=== PATIENT | female | born 1955 | race Caucasian/White ===

== ENCOUNTER 2018-09-16 00:57 | Outpatient (CLI) | payer OTHER, SELFPAY ==
--- NOTE | 2018-09-16 11:30 | DI.MAMMO_ITS ---
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 The breast tissue is heterogeneously radiodense which lowers the sensitivity of the study. There are no suspicious calcifications. There has been no significant interval change when compared with previous images. SUMMARY: No evidence of malignancy, Category 1. Annual screening mammography recommended. Breast density category C. MQSA ASSESSMENT OF FINDINGS: Negative. Category 1. Patient will receive a letter notifying them of these results. Bi-RADS category C. The breasts are heterogeneously dense, which may obscure small masses.
== END 2018-09-16 01:17 ==
PROVIDERS: PCP General Practice; Visit Provider Obstetrics & Gynecology
DX: Z12.31 Encounter for screening mammogram for malignant neoplasm of breast (principal); Z01.419 Encounter for gynecological examination (general) (routine) without abnormal findings
CPT/HCPCS: 77063; 77067

== ENCOUNTER 2019-08-22 01:56 | Outpatient (CLI) | payer OTHER, SELFPAY ==
[2019-08-22 08:49] LABS: Calculated LDL 159 mg/dL (<100); Cholesterol 246 mg/dL (<200); HDL Cholesterol 73 mg/dL (40-60); Triglyceride 70 mg/dL (<150)
== END 2019-08-22 02:16 ==
PROVIDERS: PCP Nurse Practitioner; Visit Provider Nurse Practitioner
DX: Z13.6 Encounter for screening for cardiovascular disorders (principal)
CPT/HCPCS: 36415; 80061

== ENCOUNTER 2019-09-20 00:29 | Outpatient (CLI) | payer OTHER, SELFPAY ==
--- NOTE | 2019-09-20 12:35 | DI.MAMMO_ITS ---
EXAM: MAMMO SCREENING CLINICAL HISTORY: screening,z12.39 TECHNIQUE: Mammograms were interpreted according to the usual protocol including computer analysis w [employer] CAD system, tomosynthesis and C-view imaging. COMPARISON: 2010 through 2018 FINDINGS: The breasts are composed of heterogeneously dense fibroglandular densities, Breast Density category C . No suspicious masses or suspicious microcalcifications are seen. No skin thickening or abnormal axillary lymph nodes are seen. There has been no significant change from prior exams. IMPRESSION: BI-RADS Category 1: Negative mammogram. Yearly screening mammography is recommended. Breast density category C, heterogeneously dense tissue which decreases the sensitivity of the mammog giovanni. The mammogram demonstrates the patient's breast tissue is dense. Dense breast tissue is very common a nd is not abnormal but dense breast tissue can make it harder to find cancer on a mammogram. Also, de nse breast tissue may increase breast cancer risk. This information about the result of the mammogram report was provided to the patient to raise their awareness. Use this report when you speak with the patient about their risks for breast cancer, which includes their family history. At that time, you may recommend additional screening tests (Ultrasound or MRI) as they might be useful based on their r isk. A negative radiographic report should not delay biopsy if a dominant or clinically suspicious mass is present. Up to ten percent of cancers are not identified on mammography. A negative report may reinforce clinical impression. Adenosis and dense breasts may obscure an underlying neoplasm. False positive reports average 6 to 10%.
== END 2019-09-20 00:49 ==
PROVIDERS: PCP Nurse Practitioner; Visit Provider Nurse Practitioner
DX: Z12.31 Encounter for screening mammogram for malignant neoplasm of breast (principal)
CPT/HCPCS: 77063; 77067

== ENCOUNTER 2019-12-26 06:16 | Day surgery (SDC) | payer OTHER, MEDICARE, SELFPAY ==
[2019-12-26 06:29] VITALS: BP 129/85; PULSE 81; RESP 14; TEMP 35.9; O2SAT 98
--- NOTE | 2019-12-26 06:53 | W.COLOREPORT ---
Date of service: 12/26/19 Time of Service: 07: Colonoscopy Report Date of procedure: 12/26/19 Pre-op diagnosis general: Colon Cancer Screening Post-op diagnosis procedure note: same Procedure: Colonoscopy with polypectomy Surgeon: Carmen Callaway Anesthesia proc note operative: other (General/ASA 2/Franicsca Quiles CRNA) Estimated blood loss (mL): 3 Pathology: other (Ascending polyp and transverse polyp) Complications: None Disposition: same day Indications: The patient is here for Colonoscopy pre-op. Her last screening was in 2006 and was unremarkable. She has no family history of colon cancer. She has not had any bowel habit changes. -Discussed colonoscopy bowel prep as well as the procedure. Discussed possible complications of the procedure to include bleeding, pain, perforation, missed small lesion/polyp, sore throat, aspiration and adverse reaction to the medications. Questions were answered to patient?s satisfaction. No guarantees were implied or given. Prep: Miralax/Dulcolax Procedure Start Time: : Procedure End Time: 07:56 Retraction Time: 21 minutes Findings: 2 small polyps Procedure Description: After informed consent was obtained the patient was taken to the procedure room and placed in a left decubitous position. Monitors were applied and a time out was done. The patients name, date of , procedure, allergies to medications and metal in their body was reviewed. The patient was then sedated. Once sedated and comfortable a rectal exam was done. External exam was normal. Internal exam revealed a normal sphincter tone and no palpable masses. The scope was then introduced and retro-flexed. No internal hemorrhoids were identified. The scope was then advanced to the cecum without difficulty. The ileocecal valve and appendiceal orifice were identified. The prep was good. The scope was then slowly retracted over 21 minutes back into the rectum. Polyps were removed with cold forceps in the ascending colon and transverse colon. There were no diverticula. The scope was removed and the patient was woken up and taken back to Same day surgery in stable condition. The patient tolerated the procedure well and there were no immediate complications. Follow up: The patient should follow up in 3-5 years unless they develop changes in bowel habits or other new gastrointestinal complaints.
--- NOTE | 2019-12-26 06:54 | W.PM.DSUDISC ---
Discharge Plan Disposition Patient Disposition: HOME Condition: Good Discharge Details Reason For Visit: Colonoscopy Attending Provider: Carmen Callaway Primary Care Provider: Karina Moya Home Meds and New Rx's Prescriptions: Continued escitalopram oxalate [Lexapro] 20 mg tablet 20 mg PO DAILY Qty: 90 RF: 4 ibuprofen 800 MG tablet 800 mg PO TID RF: 0 acetaminophen [Mapap Extra Strength] 500 MG tablet 1,000 mg PO PRN PRNRF: 0 Discontinued polyethylene glycol 3350 17 gram/dose powder 238 g PO ONCE Qty: 238 RF: 0 bisacodyl [Dulcolax (bisacodyl)] 5 mg tablet,delayed release (DR/EC) 5 mg PO ONCE Qty: 4 RF: 0 Discharge Instructions Additional Instructions: Findings: 2 small polyps were removed Follow up: depends on final pathology. You will receive a letter in the mail with the results and recommendations Please call if you develop: fevers >101.5 Nausea or Vomiting Abdominal pain that is not transient DAY SURGERY UNIT POST ENDOSCOPY INSTRUCTIONS 1. Because there will be medication in your system for the next 24 hours, you may feel a little sleepy. Your coordination will be affected. Therefore: a. Do not drive or operate dangerous equipment for 24 hours. b. Do not drink alcohol beverages for 24 hours (not even beer). c. Plan to go home and rest for the day. 2. Generally there are no restrictions on your activity after a day or so has gone by, but you may feel a bit fatigued for a few days. 3 After you arrive home you may have a light meal and return to a normal diet as you can tolerate it without feeling sick to your stomach. 4. After surgery, you may feel pain or discomfort. This should be only transient, but if it persists please contact your doctor. 5. If there are any questions regarding the findings of your procedure, please feel free to contact your doctor. 6. If you are unable to contact your doctor with a problem, contact the hospital at [phone]. 7. Continue all your regular medications unless directed otherwise. I understand the above instructions and have no questions. Signature of Patient or Responsible Adult Escort Date/Time Name of Responsible Adult Escort Signature of Nurse Date/Time Activity:: Activity as Tolerated Diet:: As Tolerated Discharge Orders Discharge Orders: Discharge Order (Routine); Ordered 12/26/19 Ordered By: Carmen Callaway
[2019-12-26] MEDS: Lactated Ringers 1,000 ML 80 ML IV (07:00)
--- NOTE | 2019-12-26 07:40 | BOWEL_PTH ---
PATIENT: Chiara Hooper LOC: [facility] U#:[id number] AGE/SX: 64/F ROOM: RE12/26/[address]: Carmen Callaway MD : [id number] BED: DIS: 12/26/2019 SPEC #: [id number] RECD: 12/26/19 12:21 STATUS: FELIPE RE #: [id number] LINDA: 12/26/19 07:[address]: Carmen Callaway DEPT: Surgical Specimen RECD BY: Alvina Horton ENTERED: 12/26/19 12:23 SP TYPE: Bowel OTHR DR: Karina Moya, PhD FREEDOM OF INFORMATION OFFICER Tissues: 1 - BIOPSY BOWEL 2 - BIOPSY BOWEL Procedures: GROSS AND MICRO LEVEL 4 Comments: [id number]
[2019-12-26 08:29] VITALS: BP 125/71; PULSE 64; RESP 16; TEMP 36.1; O2SAT 99
== END 2019-12-26 09:10 | disposition home or self-care (01) ==
PROVIDERS: PCP Nurse Practitioner; Visit Provider Surgery
PROC: 0DJD8ZZ Inspection of Lower Intestinal Tract, Via Natural or Artificial Opening Endoscopic (ICD-10-PCS; CPT 45378; principal; 2019-12-26 07:30)
DX: Z12.11 Encounter for screening for malignant neoplasm of colon (principal); D12.2 Benign neoplasm of ascending colon
CPT/HCPCS: 45380; 88305

== ENCOUNTER 2020-02-27 04:31 | Outpatient (CLI) | payer OTHER, MEDICARE, SELFPAY ==
[2020-02-28 21:18] LABS: Patient Race White; SARS-CoV-2 RNA Undetected (Undetected); SARS-CoV-2 Specimen Source Nasal
== END 2020-02-27 04:51 ==
PROVIDERS: PCP Nurse Practitioner; Visit Provider Nurse Practitioner
DX: Z11.59 Encounter for screening for other viral diseases (principal)
CPT/HCPCS: U0003

== ENCOUNTER 2020-06-21 02:29 | Outpatient (CLI) | payer MEDICARE, SELFPAY ==
[2020-06-22 14:56] LABS: COVID-19 RT-PCR UVMMC Result Negative (Negative)
== END 2020-06-21 02:30 | disposition home or self-care (01) ==
LOC: LBO 02:29
PROVIDERS: PCP Nurse Practitioner; Visit Provider Nurse Practitioner
DX: Z20.822 Contact with and (suspected) exposure to COVID-19 (principal)
CPT/HCPCS: U0003; U0005

== ENCOUNTER 2020-07-11 03:30 | Outpatient (CLI) | payer MEDICARE, SELFPAY ==
--- NOTE | 2020-07-11 11:30 | DI.RAD_ITS ---
EXAM: XR ANKLE RT COMPLETE CLINICAL HISTORY: ankle injury, ankle pain, M25.579. TECHNIQUE: 2D digital imaging was performed. COMPARISON: No exams were available for comparison FINDINGS: BONES: No acute fracture is present. No bony destructive lesion is seen. JOINTS: The ankle mortise is normally aligned. No significant degenerative changes. SOFT TISSUE: Normal. IMPRESSION: Unremarkable radiographs of the right ankle. DATA REPOSITORY: RADIATION DOSE DELIVERED:
[2020-07-11 12:56] LABS: Calculated LDL 141 mg/dL (<100); Cholesterol 231 mg/dL (<200); HDL Cholesterol 72 mg/dL (40-60); Triglyceride 92 mg/dL (<150)
== END 2020-07-11 03:31 | disposition home or self-care (01) ==
PROVIDERS: PCP Nurse Practitioner; Visit Provider Nurse Practitioner
DX: M25.571 Pain in right ankle and joints of right foot (principal); E78.89 Other lipoprotein metabolism disorders; Z13.6 Encounter for screening for cardiovascular disorders
CPT/HCPCS: 36415; 80061; 73610

== ENCOUNTER 2021-05-28 01:32 | Outpatient (CLI) | payer MEDICARE, SELFPAY ==
--- NOTE | 2021-05-28 15:00 | DI.MAMMO_ITS ---
Exam(s) MAMMO SCREENING EXAM: MAMMO SCREENING CLINICAL HISTORY: SCREENING, Z12.31 TECHNIQUE: Mammograms were interpreted according to the usual protocol including computer analysis w [employer] CAD system, tomosynthesis and C-view imaging. COMPARISON: FINDINGS: The breasts are heterogeneously dense with fairly symmetrical distribution of fibroglandular tissue. No dominant mass or clumped microcalcification is identified in either breast. The current examinat ion is compared with previous examinations including September 2019 and there has been no gross interval c hange in appearance in comparison with the prior studies. IMPRESSION: No specific evidence of malignancy at this time. Routine screening examinations are suggested at yea rly intervals in this age group according to the ACS ACR guidelines. BI-RADS Category 1 - Negative Breast Density - Category C - Heterogeneously dense
== END 2021-05-28 01:52 ==
PROVIDERS: PCP Nurse Practitioner; Visit Provider Internal Medicine Rheumatology
DX: Z12.31 Encounter for screening mammogram for malignant neoplasm of breast (principal)
CPT/HCPCS: 77063; 77067

== ENCOUNTER 2022-05-26 01:03 | Outpatient (CLI) | payer MEDICARE, SELFPAY ==
--- NOTE | 2022-05-26 17:50 | DI.DEXA_ITS ---
Exam(s) XR DEXA BONE DENSITY W/WO SHYANNE EXAM: XR DEXA BONE DENSITY W/WO SHYANNE CLINICAL HISTORY: screening for osteoporosis,z78.0 TECHNIQUE: COMPARISON: Comparison examination is 01/02/2015. FINDINGS: Lateral Spine Image: Unremarkable. No compression deformities identified. Left hip: Total T-Score: -2.1. This compares to -1.4 on the prior examination. Total Z-Score: -0.7 T- and Z-scores: The total T-score is consistent with osteopenia. Lumbar Spine: Total T-Score: -2.5. This compares to -2.2 on the prior examination. Total Z-Score: -0.5 T- and Z-scores: Findings are consistent with osteoporosis. IMPRESSION: Osteoporosis in the lumbar spine.
== END 2022-05-26 01:23 ==
PROVIDERS: PCP Nurse Practitioner Family; Visit Provider Nurse Practitioner
DX: Z13.820 Encounter for screening for osteoporosis (principal); M81.0 Age-related osteoporosis without current pathological fracture
CPT/HCPCS: 77080

== ENCOUNTER → 2022-10-02 11:10 | Outpatient (BNVA) | payer MEDICARE, SELFPAY | PROVIDERS: PCP Nurse Practitioner Family; Referring Provider Nurse Practitioner Family; Visit Provider Surgery | DX: R19.7 Diarrhea, unspecified (principal); K63.5 Polyp of colon; R10.9 Unspecified abdominal pain | CPT/HCPCS: 36415; 99214; 99242 ==

== ENCOUNTER 2022-10-02 12:11 | Outpatient (REF) | payer MEDICARE, SELFPAY ==
[2022-10-02 12:29] LABS: Abs Immature Grans 0.01 10^3/uL (0.0-0.06); Absolute Basophil Count 0.03 10^3/uL (0.0-0.2); Absolute Eosinophil Count 0.06 10^3/uL (0.0-0.7); Absolute Monocyte Count 0.31 10^3/uL (0.1-0.8); Absolute Neutrophil Count 1.89 10^3/uL (1.2-6.7); Basophils % 0.9; Eosinophils % 1.8; HCT 36.6 % (36.0-46.0); HGB 12.4 g/dL (11.2-15.7); Immature Grans % 0.3; Lymphocytes % 32.4; MCH 30.6 pg (27.0-33.0); MCHC 33.9 % (32.0-36.0); MCV 90 fL (80-95); MPV 9.5 fL (8.0-11.0); Monocytes % 9.1; Neutrophils % 55.5; Platelet Count 154 10^3/uL (130-400); RBC 4.05 10^6/uL (3.93-5.22); RDW 12.7 % (11.7-14.6); RDW-SD 42.2 fL
[2022-10-02 12:53] LABS: ALT 19 U/L (14-59); AST 23 U/L (15-37); Alkaline Phosphatase 57 U/L (46-116); Anion Gap 7.9 mmol/L (3-11); BUN 11 mg/dL (7-18); Bilirubin, Total 0.7 mg/dL (0.2-1.0); CO2 30.1 mmol/L (21.0-32.0); Calcium 9.6 mg/dL (8.5-10.1); Chloride 102 mmol/L (98-107); Estimated GFR 61.36 (mL/min/1.73m2); Glucose 91 mg/dL (74-106); Sodium 140 mmol/L (136-145)
== END 2022-10-02 12:12 | disposition home or self-care (01) ==
LOC: LBN 12:11
PROVIDERS: PCP Nurse Practitioner Family; Visit Provider Surgery
DX: F10.11 Alcohol abuse, in remission (principal); I63.9 Cerebral infarction, unspecified; I77.71 Dissection of carotid artery; J32.9 Chronic sinusitis, unspecified; K63.5 Polyp of colon; R10.9 Unspecified abdominal pain; R11.0 Nausea; R19.7 Diarrhea, unspecified
CPT/HCPCS: 80053; 85025

== ENCOUNTER 2022-10-03 11:57 | Day surgery (SDC) | payer MEDICARE, SELFPAY ==
--- NOTE | 2022-10-02 20:32 | W.COLOREPORT ---
Date of service: 10/03/22 Time of Service: 13:41 Colonoscopy Report Date of procedure: 10/03/22 Pre-op diagnosis general: serrated adenoma Post-op diagnosis procedure note: other (normal) Surgeon: Tamanna Wagner Anesthesia Type: General:No Airway Estimated blood loss (mL): 1 Pathology: other Complications: None Disposition: same day Prep: Miralax/Dulcolax Retraction Time: 11 Procedure Description: After informed consent was obtained the patient was taken to the procedure room and placed in a left decubitous position. Monitors were applied and a time out was done. The patients name, date of , procedure, allergies to medications and metal in their body was reviewed. The patient was then sedated. Once sedated and comfortable a rectal exam was done. External exam was normal. Internal exam revealed a normal sphincter tone and no palpable masses. The scope was then introduced and retrofelexed. No internal hemorrhoids were identified. The scope was then advanced to the cecum w/out difficulty. The TI and appendiceal orifice were identified. The prep was BBPS 3 in all segments for a total of 9. The scope was then slowly retracted over 11 minutes back into the rectum. Biopsies were taken in the cecum, 70 cm, 30 cm and in the rectum. There are no polyps, AVMs, or diet diverticula visualized. The mucosa is pink and healthy with a normal vascular pattern. The scope was removed and the patient was woken up and taken back to Same day surgery in stable condition. The patient tolerated the procedure well and there were no immediate complications. Follow up: The patient should he not require any further colonoscopies, unless they develop changes in bowel habits or other new gastrointestinal complaints.
--- NOTE | 2022-10-02 20:33 | PDOC.DSDIS_ITS ---
Date of service: 10/03/22 Time of Service: 13:34 Discharge Plan Disposition Patient Disposition: Home Condition: Good Discharge Details Reason For Visit: colon scope Attending Provider: Tamanna Wagner Primary Care Provider: Sharonda Vila Home Meds and New Rx's Prescriptions: Continued braulio goat weed capsule 1 cap PO DAILY Discontinued polyethylene glycol 3350 17 gram/dose powder 238 g PO ONCE Qty: 238 0RF Rx Instructions: take per colonoscopy instructions bisacodyl [Dulcolax (bisacodyl)] 5 mg tablet,delayed release (DR/EC) 5 mg PO ONCE Qty: 4 0RF Rx Instructions: take per colonoscopy instructions Discharge Instructions Additional Instructions: DSU Colonoscopy Post- Op Instructions Instructions for Everyone who is given Anesthesia: For your safety, please do the following for the next twenty-four (24) hours: *Do Not operate a motor vehicle (car, truck, motorcycle, etc.) *Do Not drink alcoholic beverages or use any recreational drugs for the first 24 hours or while taking pain medications. The medications in your body may have a reaction that can be dangerous. *Do Not make any important decisions or sign any important papers. Findings: normal Follow up: -We did do biopsies. I will send a letter in 2 to 3 weeks time with the resu lts. -Try Metamucil daily for diarrhea. Can also you immodium for rescue. 1. No lifting over 20 pounds or strenuous activity for the first 24 hours after your procedure. After 24 hours there are no restrictions on your activity but you may feel fatigued for a few days. 2. After you arrive home you may have a light meal and return to your normal diet as you can tolerate it without feeling sick to your stomach. 3. You may have a bloated, gaseous feeling in your belly (abdomen) after a colonoscopy. Passing gas and belching will help. Walking or lying down on your left side with your knees flexed may relieve the discomfort. Call the office at [phone] (Office) or [phone] (Hospital) right away if you notice any of the following: a.Vomiting of blood or ?coffee ground stools?. b.Rectal bleeding 1Tbsp, blood clots or continuous bleeding. c.Severe belly (abdominal) pain. d.A hard distended belly (abdomen) and an inability to pass gas. 4. Please don?t expect to have a normal BM (bowel movement) for 2-3 days after your procedure. 5. If there are questions regarding the findings of your procedure, please contact your doctor 6. If you are unable to contact your doctor with a problem, contact the hospital at [phone]. 7. Continue all your regular medications unless directed otherwise. I understand the above instructions and have no questions. Signature of Patient or Adult Escort Name of Responsible Adult Escort Signature of Nurse Date/Time Activity:: see above Diet:: see above Discharge Orders Discharge Orders: Discharge Order (Routine); Ordered 10/03/22 Ordered By: Tamanna Wagner DS: Diagnosis Discharge Diagnosis (1) Sessile colonic polyp: Asessment and Plan: The patient is seen and examined after their colonoscopy.? The patient has been able to pass gas.? They are not having abdominal pain.? They have been able to tolerate liquids and a snack.? They do not have any nausea or vomiting.? They are not having any chest pain or shortness of breath.??? They are not having any rectal bleeding. Their vital signs have been stable-see nursing notes. We discussed findings during their colonoscopy, and any biopsies that were done/polyps that were removed. The patient will be sent a letter with any biopsy results, and when to repeat the colonoscopy.-see discharge instructions. Patient was given explicit instructions to follow-up regarding colonoscopy-refer to discharge instructions.? We reviewed resumption of medications.Patient verbalized understanding and discharged in stable and satisfactory condition- See nursing notes (2) Abdominal discomfort: Status: Acute (3) Nausea: Status: Acute (4) Diarrhea: Status: Acute (5) Carotid artery dissection: (6) Chronic sinusitis: (7) CVA (cerebral vascular accident): (8) Osteopenia: (9) History of alcohol abuse:
[2022-10-03 12:14] VITALS: BP 108/80; PULSE 90; RESP 16; TEMP 36.1; O2SAT 98
[2022-10-03] MEDS: Lactated Ringers 1,000 ML 80 ML IV (12:31)
--- NOTE | 2022-10-03 12:39 | ANES.PREOP_ITS ---
General Info Height: 5 ft 7 in Weight: 56.8 kg Body Mass Index (BMI): 19.5 Surgical Procedure: Operation Date: 10/03/22 12:20 Proposed Procedure Side Surgeon p Colonoscopy w/Biopsy and Possible Polypectomy Tamanna Wagner DO Meds Allergies and Home Medications Allergies Allergy/AdvReac Type Severity Reaction Status Date / Time No Known Allergies Allergy Verified 10/03/22 12:13 Home Medication Medication Instructions Recorded agy goat weed 1 cap PO DAILY 10/02/22 Current Visit Medications: Current Medications Generic Name Dose Route Start Last Admin Trade Name Freq PRN Reason Stop Dose Admin Hyoscyamine Sulfate 0.125 mg 10/03/22 08:31 Hyoscyamine 0.125 Mg Sl/Oral/Chew SL 11/02/22 08:30 DIRECTED PRN Ringer's Solution 1,000 mls @ 80 mls/hr 10/03/22 06:00 10/03/22 12:31 IV 11/01/22 23:59 80 mls/hr INFUSION KATHERYN Administration IV Miscellaneous Supplies 1 each 10/03/22 06:00 Iv Access IV 11/01/22 23:59 DIRECTED KATHERYN Ondansetron HCl 4 mg 10/03/22 08:31 Ondansetron 4 Mg/2 Ml Vial IVP 11/02/22 08:30 Q4H PRN PRN Nausea / Vomiting Sodium Chloride 0 ml 10/03/22 06:00 Normal Saline Flush 10 Ml Syr IV 11/01/22 23:59 PRN PRN Sodium Chloride 0 ml 10/03/22 06:00 Normal Saline 10 Ml Vial IJ 11/01/22 23:59 DIRECTED PRN Sterile Water 0 ml 10/03/22 06:00 Water,Injection,Sterile 10 Ml Vial IJ 11/01/22 23:59 DIRECTED PRN PFSH Active Problems Active Problems: Problem Status Onset Code Depression F32.9 Hearing loss H91.90 Osteoporosis M81.0 Abdominal discomfort R10.9 Nausea R11.0 Diarrhea R19.7 Medical History Medical History Abnormal Pap smear of vagina Carotid artery dissection (01/12/14) 01/13 Chronic sinusitis CVA (cerebral vascular accident) s/t left carotid dissection 01/2010 History of alcohol abuse Sober since 2017 Leukopenia Numbness right hand & foot s/p CVA Osteopenia T-Score -2.2 in 2015 Sessile colonic polyp Surgical History Surgical History (Updated 10/03/22 @ 13:32 by Vy Dillon) History of open reduction and internal fixation (ORIF) procedure R wrist Hx of colonoscopy (~09/2022) 12/2019 S/P LEEP S/P ORIF (open reduction internal fixation) fracture Right Wrist 2017 Tobacco Smoking/Tobacco Use Status: Never Passive smoking exposure: Yes Second hand exposure: Yes Alcohol Alcohol Intake: former Substance Use Substance use: Occasionally Substance use type: marijuana Details: Smokes marijuana occasionally, current sobriety from alcohol since 2017. Vital Signs and Lab Results Vital Signs Most Recent Vital Signs in EMR: Most Recent Vital Signs Temp Pulse Resp BP Pulse Ox 36.1 C L 90 16 108/80 98 10/03/22 12:14 10/03/22 12:14 10/03/22 12:14 10/03/22 12:14 10/03/22 12:14 Lab Results Blood Type / Crossmatch: No Data to Display Complete Blood Count: White Blood Count 3.40 10^3/uL (4.4-10.8) L 10/02/22 12:10 Red Blood Count 4.05 10^6/uL (3.93-5.22) 10/02/22 12:10 Hemoglobin 12.4 g/dL (11.2-15.7) 10/02/22 12:10 Hematocrit 36.6 % (36.0-46.0) 10/02/22 12:10 Platelet Count 154 10^3/uL (130-400) 10/02/22 12:10 Complete Metabolic Panel: Sodium 140 mmol/L (136-145) 10/02/22 12:10 Potassium 4.0 mmol/L (3.5-5.1) 10/02/22 12:10 Chloride 102 mmol/L (98-107) 10/02/22 12:10 Carbon Dioxide 30.1 mmol/L (21.0-32.0) 10/02/22 12:10 BUN 11 mg/dL (7-18) 10/02/22 12:10 Creatinine 1.0 mg/dL (0.55-1.02) 10/02/22 12:10 Est GFR (CKD-EPI 2020) 61.36 (mL/min/1.73m2) 10/02/22 12:10 Calcium 9.6 mg/dL (8.5-10.1) 10/02/22 12:10 Albumin 4.0 g/dL (3.4-5.0) 10/02/22 12:10 Glucose 91 mg/dL (74-106) 10/02/22 12:10 Liver Function Panel: Alanine Aminotransferase (ALT/SGPT) 19 U/L (14-59) 10/02/22 12: 10 Aspartate Amino Transf (AST/SGOT) 23 U/L (15-37) 10/02/22 12:10 Coagulation Panel: No Data to Display Cardiac Panel: No Data to Display Arterial Blood Gas: No Data to Display Venous Blood Gas: No Data to Display Pancreas Panel: No Data to Display Thyroid Panel: No Data to Display Infectious Disease: No Data to Display Blood Cultures: No Data to Display Toxicology Panel: No Data to Display Anesthesia Assessment and Plan Anesthesia History Personal History: No History of Anesthesia Complications Family History: No Family History of Anesthesia Complications Implantable Cardiac Device Does patient have a Pacemaker or an ICD?: No ASA Classification ASA Score: ASA 2 Emergency Case?: No NPO Status NPO Status: NPO Clears >2 hours, Solids >8 hours Anesthesia Plan Resuscitation Status: Full Code Anesthesia Technique: General Anesthesia Airway Planned: Natural Airway Monitors Used: Standard Monitors Preoperative Comments:: 67 yo female for colo. Sig PMHx: CVA (carotid dissection 2009), depression, former EtOH, occ cannabis.
--- NOTE | 2022-10-03 12:43 | ANES.PREOP_ITS ---
General Info Date of Service Date Performed: 10/03/22 Height: 5 ft 7 in Weight: 56.8 kg Body Mass Index (BMI): 19.5 Surgical Procedure: Operation Date: 10/03/22 12:20 Proposed Procedure Side Surgeon p Colonoscopy w/Biopsy and Possible Polypectomy Tamanna Wagner, Meds Allergies and Home Medications Allergies Allergy/AdvReac Type Severity Reaction Status Date / Time No Known Allergies Allergy Verified 10/03/22 12:13 Home Medication Medication Instructions Recorded agy goat weed 1 cap PO DAILY 10/02/22 Current Visit Medications: Current Medications Generic Name Dose Route Start Last Admin Trade Name Freq PRN Reason Stop Dose Admin Hyoscyamine Sulfate 0.125 mg 10/03/22 08:31 Hyoscyamine 0.125 Mg Sl/Oral/Chew SL 11/02/22 08:30 DIRECTED PRN Ringer's Solution 1,000 mls @ 80 mls/hr 10/03/22 06:00 10/03/22 12:31 IV 11/01/22 23:59 80 mls/hr INFUSION KATHERYN Administration IV Miscellaneous Supplies 1 each 10/03/22 06:00 Iv Access IV 11/01/22 23:59 DIRECTED KATHERYN Ondansetron HCl 4 mg 10/03/22 08:31 Ondansetron 4 Mg/2 Ml Vial IVP 11/02/22 08:30 Q4H PRN PRN Nausea / Vomiting Sodium Chloride 0 ml 10/03/22 06:00 Normal Saline Flush 10 Ml Syr IV 11/01/22 23:59 PRN PRN Sodium Chloride 0 ml 10/03/22 06:00 Normal Saline 10 Ml Vial IJ 11/01/22 23:59 DIRECTED PRN Sterile Water 0 ml 10/03/22 06:00 Water,Injection,Sterile 10 Ml Vial IJ 11/01/22 23:59 DIRECTED PRN PFSH Active Problems Active Problems: Problem Status Onset Code Depression F32.9 Hearing loss H91.90 Osteoporosis M81.0 Abdominal discomfort R10.9 Nausea R11.0 Diarrhea R19.7 Medical History Medical History Abnormal Pap smear of vagina Carotid artery dissection (01/12/14) 01/13 Chronic sinusitis CVA (cerebral vascular accident) s/t left carotid dissection 01/2010 History of alcohol abuse Sober since 2017 Leukopenia Numbness right hand & foot s/p CVA Osteopenia T-Score -2.2 in 2015 Sessile colonic polyp Surgical History Surgical History History of open reduction and internal fixation (ORIF) procedure R wrist Hx of colonoscopy S/P LEEP S/P ORIF (open reduction internal fixation) fracture Right Wrist 2017 Tobacco Smoking/Tobacco Use Status: Never Passive smoking exposure: Yes Second hand exposure: Yes Alcohol Alcohol Intake: former Substance Use Substance use: Occasionally Substance use type: marijuana Details: Smokes marijuana occasionally, current sobriety from alcohol since 2017. Vital Signs and Lab Results Vital Signs Most Recent Vital Signs in EMR: Most Recent Vital Signs Temp Pulse Resp BP Pulse Ox 36.1 C L 90 16 108/80 98 10/03/22 12:14 10/03/22 12:14 10/03/22 12:14 10/03/22 12:14 10/03/22 12:14 Lab Results Blood Type / Crossmatch: No Data to Display Complete Blood Count: White Blood Count 3.40 10^3/uL (4.4-10.8) L 10/02/22 12:10 Red Blood Count 4.05 10^6/uL (3.93-5.22) 10/02/22 12:10 Hemoglobin 12.4 g/dL (11.2-15.7) 10/02/22 12:10 Hematocrit 36.6 % (36.0-46.0) 10/02/22 12:10 Platelet Count 154 10^3/uL (130-400) 10/02/22 12:10 Complete Metabolic Panel: Sodium 140 mmol/L (136-145) 10/02/22 12:10 Potassium 4.0 mmol/L (3.5-5.1) 10/02/22 12:10 Chloride 102 mmol/L (98-107) 10/02/22 12:10 Carbon Dioxide 30.1 mmol/L (21.0-32.0) 10/02/22 12:10 BUN 11 mg/dL (7-18) 10/02/22 12:10 Creatinine 1.0 mg/dL (0.55-1.02) 10/02/22 12:10 Est GFR (CKD-EPI 2020) 61.36 (mL/min/1.73m2) 10/02/22 12:10 Calcium 9.6 mg/dL (8.5-10.1) 10/02/22 12:10 Albumin 4.0 g/dL (3.4-5.0) 10/02/22 12:10 Glucose 91 mg/dL (74-106) 10/02/22 12:10 Liver Function Panel: Alanine Aminotransferase (ALT/SGPT) 19 U/L (14-59) 10/02/22 12: 10 Aspartate Amino Transf (AST/SGOT) 23 U/L (15-37) 10/02/22 12:10 Coagulation Panel: No Data to Display Cardiac Panel: No Data to Display Arterial Blood Gas: No Data to Display Venous Blood Gas: No Data to Display Pancreas Panel: No Data to Display Thyroid Panel: No Data to Display Infectious Disease: No Data to Display Blood Cultures: No Data to Display Toxicology Panel: No Data to Display Anesthesia Assessment and Plan Anesthesia History Personal History: No History of Anesthesia Complications Family History: No Family History of Anesthesia Complications Exercise Tolerance Exercise Tolerance: Metabolic Equivalents>4 Pertinent Negatives Pertinent Negatives: No Symptoms of GERD Cardiac & Pulmonary Exam Cardiac Exam: Normal S1/S2 Heart Sounds Pulmonary Exam: Clear Bilateral Breath Sounds Implantable Cardiac Device Does patient have a Pacemaker or an ICD?: No Airway Exam Known Difficult Airway: No Mallampati Class: 2 Mouth Opening: Normal (> 3cm) Thyromental Distance: Greater than 3 cm Neck Range of Motion: Full ROM Neck Circumference: Normal Teeth Condition: Normal Dentition ASA Classification ASA Score: ASA 2 Emergency Case?: No NPO Status NPO Status: NPO Clears >2 hours, Solids >8 hours Anesthesia Plan Resuscitation Status: Full Code Anesthesia Technique: General Anesthesia Airway Planned: Natural Airway Monitors Used: Standard Monitors
[2022-10-03 12:47] VITALS: BMI 19.5
--- NOTE | 2022-10-03 13:14 | BOWEL_PTH ---
PATIENT: Chiara Hooper LOC: [facility] U#:[id number] AGE/SX: 67/F ROOM: RE10/03/[address]: Tamanna Wagner : 1955 BED: DIS: 10/03/2022 SPEC #: [id number] RECD: 10/03/22 14:04 STATUS: FELIPE REIrving #: [id number] LINDA: 10/03/22 13:[address]: Tamanna Wagner DEPT: Surgical Specimen RECD BY: Alvina Horton ENTERED: 10/03/22 14:04 SP TYPE: Bowel OTHR DR: Sharonda Vila, SEPTIC CLEANER Tissues: 1 - BIOPSY BOWEL 2 - BIOPSY BOWEL 3 - BIOPSY BOWEL 4 - BIOPSY BOWEL Procedures: GROSS AND MICRO LEVEL 4 Comments: [id number]
[2022-10-03 13:30] VITALS: BP 100/78; PULSE 73; RESP 17; TEMP 36.2; O2SAT 98
--- NOTE | 2022-10-03 13:36 | W.ANESPOSTOP ---
Postoperative Evaluation Date, Time and Location Date Performed: 10/03/22 Time Performed: 13:36 Patient Location: Day Surgery Unit Vital Signs Most Recent Imported Vital Signs: Most Recent Vital Signs Temp Pulse Resp BP Pulse Ox 36.1 C L 90 16 108/80 98 10/03/22 12:14 10/03/22 12:14 10/03/22 12:14 10/03/22 12:14 10/03/22 12:14 Pain Score Most Recent Pain Score: Most Recent Pain Score Pain Level 0 10/03/22 12:14 Assessment Mental Status: Awake (Alert & Oriented to Patient Baseline) Airway and Respiratory Function: Patent airway with normal (patient baseline) respiratory exam Cardiovascular Function: Hemodynamically Stable Hydration Status: Adequately Hydrated Nausea & Vomiting: No Nausea or Vomiting Pain: Pt. Denies Any Pain Peripheral Nerve Block: Patient did not receive a nerve block
[2022-10-03 14:12] VITALS: BP 119/64; PULSE 72; RESP 16; TEMP 36.3; O2SAT 99
== END 2022-10-03 14:25 | disposition home or self-care (01) ==
PROVIDERS: PCP Nurse Practitioner Family; Visit Provider Surgery
PROC: 0DJD8ZZ Inspection of Lower Intestinal Tract, Via Natural or Artificial Opening Endoscopic (ICD-10-PCS; CPT 45378; principal; 2022-10-03 12:15)
DX: R11.0 Nausea (principal); K63.5 Polyp of colon; R63.4 Abnormal weight loss; R19.7 Diarrhea, unspecified; Z86.010 Personal history of colon polyps
CPT/HCPCS: 45380; 88305

== ENCOUNTER 2022-10-20 02:37 | Outpatient (CLI) | payer MEDICARE, SELFPAY ==
--- NOTE | 2022-10-20 07:14 | DI.US_ITS ---
Exam(s) US ABDOMEN EXAM: US ABDOMEN CLINICAL HISTORY: nausea/diarrhEa/bloating,R10.9,R11.0,R19.7 TECHNIQUE: Ultrasound abdomen performed using standard protocol. COMPARISON: No exams were available for comparison FINDINGS: LIVER: Normal size and echogenicity. No focal liver lesions are seen.. GALLBLADDER: No evidence of cholelithiasis. No evidence of wall thickening. No pericholecystic fluid identified. WESTBROOK'S SIGN: Negative. BILIARY SYSTEM: No intrahepatic or extrahepatic biliary ductal dilation. KIDNEYS: Kidneys are symmetric in size. No evidence of renal calculi. No evidence of hydronephrosis. No renal mass or cyst identified. PANCREAS: Normal where visualized. SPLEEN: Not enlarged. ABDOMINAL AORTA AND IVC: Visualized portions normal caliber. ASCITES: None seen. IMPRESSION: Normal sonographic appearance of the upper abdomen. DATA REPOSITORY:
== END 2022-10-20 02:57 ==
LOC: DI 02:37
PROVIDERS: PCP Nurse Practitioner Family; Visit Provider Surgery
DX: R10.9 Unspecified abdominal pain (principal); R11.0 Nausea; R19.7 Diarrhea, unspecified
CPT/HCPCS: 76700

== ENCOUNTER → 2023-06-01 02:12 | Outpatient (CLI) | payer MEDICARE, SELFPAY ==
--- NOTE | 2023-06-01 | DI.MAMMO_ITS ---
Exam(s) MAMMO SCREENING EXAM: MAMMO SCREENING CLINICAL HISTORY: SCREENING, Z12.31. TECHNIQUE: Bilateral full field digital CC and MLO mammographic images were obtained with 3D tomosyn thesis and utilizing computer aided detection (CAD). COMPARISON: Prior mammograms were reviewed. FINDINGS: There has been no significant change in the appearance and distribution of the fibroglandular tissue. There are no new spiculated masses nor malignant appearing microcalcification groups. There is no significant architectural distortion nor skin thickening-retraction. IMPRESSION: No radiographic evidence of malignancy. BI-RADS Category 1 - Negative Breast Density - Category C - Heterogeneously dense Breast density Category C or D implies that the patient has dense breast tissue. Dense breast tissue can make it harder to find cancer on a mammogram. Dense breast tissue is also associated with an incr eased risk of breast cancer. This information about the result of the mammogram report was provided to the patient to raise their awareness. Use this report when you speak with the patient about their risks for breast cancer, which includes their family history. At that time, you may recommend additional screening tests (Ultrasoun d or MRI) as these tests may add significant information. A negative radiographic report should not delay biopsy if a dominant or clinically suspicious mass is present. Up to ten percent of cancers are not identified on mammography. A negative report may reinforce clinical impression. Adenosis and dense breasts may obscure an underlying neoplasm. False positive reports average 6 to 10%. Patient will receive a letter notifying them of these results.
== END ==
PROVIDERS: PCP Nurse Practitioner Family; Visit Provider Midwife
DX: Z12.31 Encounter for screening mammogram for malignant neoplasm of breast (principal)
CPT/HCPCS: 77063; 77067

== ENCOUNTER 2023-10-30 08:06 | Day surgery (SDC) | payer MEDICARE, SELFPAY ==
--- NOTE | 2023-10-29 21:01 | PDOC.DSDIS_ITS ---
Date of service: 10/30/23 Time of Service: 09:20 Discharge Plan Disposition Patient Disposition: Home Discharge Details Reason For Visit: stomach scope Attending Provider: Tamanna Wagner Primary Care Provider: Sharonda Vila Home Meds and New Rx's Prescriptions: New famotidine [Pepcid] 40 mg tablet 40 mg PO DAILY Qty: 30 12RF Continued horny goat weed capsule 1 cap PO DAILY sucralfate [Carafate] 1 gram tablet 1 g PO QHS Qty: 90 12RF Rx Instructions: & prn q8hrs prn Heartburn symptoms Discharge Instructions Additional Instructions: Post EGD Instruction ?You had anesthesia for your EGD/stomach scope today.? For your safety, please do the following for the next twenty-four (24) hours: Do Not operate a motor vehicle (car, truck, motorcycle, etc.) Do Not drink alcoholic beverages or use any recreational drugs for the first 24 hours or while taking pain medications. The medications in your body may have a reaction that can be dangerous. Do Not make any important decisions or sign any important papers You have just had a gastroscopy (EGD) or upper GI tract examination. It is important for your smooth recovery that you carefully follow the recommendations below. Do not hesitate to call if any questions should arise about your anesthesia, condition, or care. -Symptoms you may experience during the next 24 hours: ?1. Mild abdominal pain or excessive gas or a bloated feeling which improves with rest, liquids, eating? slightly, and walking as tolerated. 2. Drowsiness and/or forgetfulness because of the medications you were given. ?3. Throat numbness for about 1 hour. 4. A sore throat which you can treat with throat lozenges or by gargling with salt water 4-5 times a day. 5. Redness at the site of your IV which you can treat with warm compresses. SPECIAL INSTRUCTIONS: 1. You may resume your previous diet in one hour. We recommend a light meal to start, then progress as tolerated. 2. Restart regular medications in one hour. 3. No aspirin or non-steroidal containing medication for three days. 4. No lifting over 20 pounds or strenuous activity for the first 24 hours after your procedure. After 24 hours there are no restrictions on your activity, but you may feel fatigued for a few days. Findings: Mild gastritis and esophagitis -Medications: carafate as needed pepcid bid -Continue to follow lifestyle modifications: No alcohol, tobacco products, Aspirin or NSAID's (ibuprofen, Motrin, Naprosyn, aleve, etc).? Try to limit/avoid:? soda pop/any carbonated beverages, caffeine (including tea & chocolate), and acidic foods, (tomatoes, citrus, onions, peppermints) spicy or fried/fatty foods. Do not lie down for 30 minutes after eating, and do not eat 2 hours prior to bedtime. Avoid wearing tight fitting clothing/ belts. Follow up: -My office will send a letter with the results of your biopsy?s in 2-3wks time. Call the office at [phone] (Office) or [phone] (Hospital), or go to the ER right away if you notice any of the followin. Vomiting blood and /or ?coffee ground? material. ?2. Worsening of abdominal pain or cramping. ?3. Trouble with breathing, cough, and/or fever (temperature above 101.5 F). 4. Increasing pain with swallowing. ?5. Chest pain. 6. Any new symptoms. 7. Worsening of the redness at the IV site Stand Alone Forms: Anesthesia Discharge InstJd Rivera (DSU) Activity:: see above Diet:: see above Discharge Orders Discharge Orders: Discharge Order (Routine); Ordered 10/29/23 Ordered By: Tamanna Wagner DS: Diagnosis Discharge Diagnosis (1) Osteoporosis: Status: Chronic (2) Hearing loss: Status: Acute (3) Chronic GERD: Status: Acute Asessment and Plan: Patient is seen and examined after they are endoscopy.? Patient has minimal sore throat.? They have been able to tolerate liquids.? They do not have any nausea vomiting.? They are not having any chest pain or shortness of breath.? They have been able to pass gas and are not having any abdominal pain or distention.? They have not vomited any blood.? The vital signs have been stable-see nursing notes. We discussed findings on their endoscopy. We reviewed the importance of lifestyle modification-see discharge instructions We reviewed any new medications that the patient may be prescribed-see discharge instructions Patient will either be sent a letter with the biopsy results or follow-up in the office-see discharge instructions. Patient was given explicit instructions to follow-up regarding post endoscopy- refer to discharge Patient verbalized understanding and discharged in stable and satisfactory condition.? See nursing notes. (4) Gastritis: Status: Acute (5) Esophagitis: Status: Acute
--- NOTE | 2023-10-29 21:04 | HPE_ITS ---
Date of service: 10/30/23 Time of Service: 08:48 Assessment and Plan Assessment and plan (1) Depression: Status: Chronic Qualifiers: Depression Type: unspecified Qualified Code(s): F32.9 - Major depressive disorder, single episode, unspecified (2) Osteoporosis: Status: Chronic (3) Hearing loss: Status: Acute (4) Chronic GERD: Status: Acute Assessment and plan: Medication refractory GERD s/s not improved w/ PPI. plan: EGD Informed consent is obtained for the procedural (explained in simple layman's terms that the pt. and/or family could understand) explaining risks vs benefits and alternatives to the procedure and consequences if we do not do the procedure and need/rational for the procedure. Risks include but are not limited to: bleeding, infection, perforation of esophagus, stomach, colon, small intestines, bronchus or trachea, or PTX. This would necessitate emergency surgery to repair the damage w/ possible ostomy; and other associated complications w/ the required surgery. Also complications of anesthesia including aspiration, PA/CVA/. History of Present Illness Narrative: Patient has been having problems with her chronic cough and GERD symptoms. They are exacerbated with caffeine intake. They did not resolve with Protonix or Dexilant. Patient would like to have an EGD. I did put her on Carafate that she can take at bedtime and use it as needed during the day for symptoms Past medical history significant for a carotid dissection in 2015 she has had no problems. She does not have a heart attack. She has no pulmonary conditions. She has no other cardiovascular conditions. She is a non-smoker. She had a colonoscopy last year with no problems with anesthesia. Rx for Carafate placed-this did not help either Continue lifestyle modification. Continue with lifestyle modifications: no alcohol, tobacco products, Aspirin or NSAID's (ibuprofen, Motrin, Naprosyn, aleve, etc), soda pop/any carbonated beverages, caffeine (including tea & chocolate), and acidic foods, (tomatoes, citrus, onions, peppermints) spicy or fried/fatty foods. Do not lie down for 30 minutes after eating, and do not eat 2 hours prior to bedtime. Avoid wearing tight fitting clothing/ belts Pt is here today for EGD Informed consent is obtained for the procedural (explained in simple layman's terms that the pt. and/or family could understand) explaining risks vs benefits and alternatives to the procedure and consequences if we do not do the procedure and need/rational for the procedure. Risks include but are not limited to: bleeding, infection, perforation of esophagus, stomach, colon, small intestines, bronchus or trachea, or PTX. This would necessitate emergency surgery to repair the damage w/ possible ostomy; and other associated complications w/ the required surgery. Also complications of anesthesia including aspiration, PA/CVA/. Review of Systems All systems reviewed & are unremarkable except as noted in HPI and below PFSH All Active Problems Chronic GERD (Acute) Depression (Chronic) Hearing loss (Acute) hearing aid bilaterally Osteoporosis (Chronic) lumbar spine on Dexa 05/2022 Abdominal discomfort (Acute) Nausea (Acute) Diarrhea (Acute) Medical History Sessile colonic polyp Carotid artery dissection (01/12/14) 01/13 Numbness right hand & foot s/p CVA History of alcohol abuse Sober since 2016 Osteopenia T-Score -2.2 in 2014 CVA (cerebral vascular accident) s/t left carotid dissection 01/2010 Abnormal Pap smear of vagina Leukopenia Chronic sinusitis Surgical History History of open reduction and internal fixation (ORIF) procedure R wrist Hx of colonoscopy (~09/2022) 12/2019 S/P ORIF (open reduction internal fixation) fracture Right Wrist 2016 S/P LEEP Family History Mother COPD (chronic obstructive pulmonary disease) Hypertension Hyperlipidemia Father , age 74 Alcohol abuse Lung cancer Substance abuse Sister No problems noted. Brother Asthma Brother Heart disease rheumatic Hyperlipidemia Cancer Testicular Brother Alcohol abuse Son No problems noted. Daughter No problems noted. Maternal Grandfather , age 74 of emphysema Emphysema lung Paternal Grandfather , age 80 No problems noted. Maternal Grandmother , age 73 Acquired von Willebrand disease Paternal Grandmother , age 92 - fx hip/embolus No problems noted. Social History Smoking/Tobacco Use Status: Never Second Hand Exposure: Yes Smoking risk assessment performed?: Yes Alcohol Intake: former Drug use: Occasionally Substance use type: marijuana Caregiver/Support person: No Household members: spouse Housing: house Communication Needs: None Do you need help understanding health information?: Never Pets and animals: Yes Pets and animals: cat(s) and dog(s) Sexually active: Yes Do you think of yourself as: straight/heterosexual Current gender identity: female What is your relationship status?: How often do you talk on the phone with friends or family?: three or more times per week How often do you get together with friends or relatives?: three or more times per week How often do you attend advent or catholic services?: 1-3 times per year Do you belong to any clubs or organized social groups?: no Panel score (0-1 are the most socially isolated patients): 2 What type of physical activity do you participate in: yoga Duration: 60-90 minutes/day Frequency: 1-2 times per week Anay/Worship: No preference Special anay needs: No Seatbelt use: always Helmet use: No Drive intox or ride w/intox patient transportation driver: No Do you feel safe at home: Yes Do you feel safe in your relationship?: Yes Meds Allergies and Home Medications Allergies Allergy/AdvReac Type Severity Reaction Status Date / Time No Known Allergies Allergy Verified 10/30/23 08:13 Home Medications ?Medication ?Instructions ?Recorded ?Confirmed ?Type horny goat weed 1 cap PO DAILY 10/02/22 10/30/23 History sucralfate 1 gram tablet (Carafate) 1 g PO QHS #90 tabs 10/19/23 10/30/23 Rx Exam Narrative Exam Narrative: PHYSICAL EXAM GENERAL APPEARANCE: Alert, healthy appearance, oriented, x 3,? in no acute distress HYDRATION: Well hydrated HEAD, EYES, EARS, NECK, THROAT: Head is normocephalic, pupils equal, round, reactive to light and accommodation, ocular movement intact, sclera clear and no jaundice. ?Dentition intact. LUNGS: normal respiration/normal chest excursion. ?Clear to auscultation bilaterally. ?No wheeze. ?HEART: Regular rate and rhythm. no murmurs ABDOMEN: soft and non-tender to palpation.? Normal bowel sounds.? Time Spent Time spent with Patient: <40 minutes Time was spent: preparing to see the patient(eg.review tests), obtaining and/or reviewing separately otained hiistory, ordering medications,tests, procedures, referring, communicating with other health memory care director, indepentently interpreting results, counseling the patient, care coordination and other
--- NOTE | 2023-10-29 21:15 | ENDO_ITS ---
Date of service: 10/30/23 Time of Service: 09:25 Endoscopy Report DATE OF PROCEDURE: 10/30/23 PRE-OP DIAGNOSIS: medication refractory GERD POST-OP DIAGNOSIS: other (Mild gastritis and esophagitis) SURGEON: Tamanna Wagner ANESTHESIA TYPE: General:No Airway ESTIMATED BLOOD LOSS: 1 PATHOLOGY: other COMPLICATIONS: None DISPOSITION: same day PROCEDURE DESCRIPTION: After informed consent was obtained 9Risks: bleeding, infections, perforations {which could require surgery or antibiotics and prolonged hospital stay}, or ostomy, and complications of anaesthesia, carolyn aspiration). The patient was take to the procedure room and placed in a supine position. Monitors were applied and a time out was done. The patients name, date of , procedure type, allergies to medications and metal in their body was reviewed. A bite block was placed and the patient was sedated. Once sedated and comfortable an Olympus gastroscope (see RN notes for scope #) was advanced through the oropharynx which was grossly normal, and passed into the esophagus. The proximal and mid-esopha sandy were normal. The distal esophagus does not show any: dilation/strictures/varices/erosions or ulcers/bleeding noted. There is some mild esophagitis. The scope was advanced into the stomach and through the pylorus into the proximal jejunum. The duodenum was noted to be normal. Biopsies were done of the duodenal bulb.. The scope was retracted back into the stomach and biopsies were taken of the antrum. There were no gastropathy/ ulcers/masses noted. There is mild gastritis radiating from the antrum in a striped fashion the scope was retroflexed. The cardia and fundus were noted to be normal. There is no hiatal hernia noted. The scope was retracted back into the esophagus and biopsies were done of the GE junction (in all 4 quadrants) and distal esophagus (2cm above the GE junction) to rule out Fairchild's. All specimens are retrieved and no bleeding was noted. The Z line was regular. The GE junction was at 38 cm. The scope was removed and the patient was woken up and taken back to [facility] in stable condition.
--- NOTE | 2023-10-30 05:52 | ANES.PREOP_ITS ---
General Info Date of Service Date Performed: 10/30/23 Height: 5 ft 6.5 in Weight: 57.153 kg Body Mass Index (BMI): 20.0 Surgical Procedure: Operation Date: 10/30/23 09:05 Proposed Procedure Side Surgeon p Gastroscopy Tamanna Wagner DO Meds Allergies and Home Medications Allergies Allergy/AdvReac Type Severity Reaction Status Date / Time No Known Allergies Allergy Verified 10/30/23 08:13 Home Medication ?Medication ?Instructions ?Recorded horny goat weed 1 cap PO DAILY 10/02/22 sucralfate 1 gram tablet (Carafate) 1 g PO QHS #90 tabs 10/19/23 Current Visit Medications: Current Medications Generic Name Dose Route Start Last Admin Trade Name Freq PRN Reason Stop Dose Admin Hyoscyamine Sulfate 0.125 mg 10/30/23 09:00 Hyoscyamine 0.125 Mg Sl/Oral/Chew SL 11/29/23 08:59 DIRECTED PRN Ringer's Solution 1,000 mls @ 75 mls/hr 10/30/23 06:00 IV 10/30/23 23:59 [facility] IV Miscellaneous Supplies 1 each 10/30/23 06:00 Iv Access IV 10/30/23 23:59 DIRECTED KATHERYN Ondansetron HCl 4 mg 10/30/23 09:00 Ondansetron 4 Mg/2 Ml Vial IVP 11/29/23 08:59 Q4H PRN PRN Nausea / Vomiting Sodium Chloride 0 ml 10/30/23 06:00 Normal Saline Flush 10 Ml Syr IV 10/30/23 23:59 PRN PRN Sodium Chloride 0 ml 10/30/23 06:00 Normal Saline 10 Ml Vial IJ 10/30/23 23:59 DIRECTED PRN Sterile Water 0 ml 10/30/23 06:00 Water,Injection,Sterile 10 Ml Vial IJ 10/30/23 23:59 DIRECTED PRN PFSH Active Problems Active Problems: Problem Status Onset Code Chronic GERD Acute K21.9 Depression Chronic F32.9 Hearing loss Acute H91.90 Osteoporosis Chronic M81.0 Abdominal discomfort Acute R10.9 Nausea Acute R11.0 Diarrhea Acute R19.7 Medical History Medical History Sessile colonic polyp Carotid artery dissection (01/12/14) 01/13 Numbness right hand & foot s/p CVA History of alcohol abuse Sober since 2017 Osteopenia T-Score -2.2 in 2014 CVA (cerebral vascular accident) s/t left carotid dissection 01/2010 Abnormal Pap smear of vagina Leukopenia Chronic sinusitis Surgical History Surgical History History of open reduction and internal fixation (ORIF) procedure R wrist Hx of colonoscopy (~09/2022) 12/2019 S/P ORIF (open reduction internal fixation) fracture Right Wrist 2017 S/P LEEP Tobacco Smoking/Tobacco Use Status: Never Passive smoking exposure: No Second hand exposure: Yes Alcohol Alcohol Intake: former Substance Use Substance use: Occasionally Substance use type: marijuana Vital Signs and Lab Results Lab Results Blood Type / Crossmatch: No Data to Display Complete Blood Count: No Data to Display Complete Metabolic Panel: No Data to Display Liver Function Panel: No Data to Display Coagulation Panel: No Data to Display Cardiac Panel: No Data to Display Arterial Blood Gas: No Data to Display Venous Blood Gas: No Data to Display Pancreas Panel: No Data to Display Thyroid Panel: No Data to Display Infectious Disease: No Data to Display Blood Cultures: No Data to Display Toxicology Panel: No Data to Display Anesthesia Assessment and Plan Anesthesia History Personal History: No History of Anesthesia Complications Family History: No Family History of Anesthesia Complications Exercise Tolerance Exercise Tolerance: Metabolic Equivalents>4 Pertinent Negatives Pertinent Negatives: No Major Cardiovascular Symptoms or Complaints and No Major Pulmonary Symptoms or Complaints Cardiac & Pulmonary Exam Cardiac Exam: Normal S1/S2 Heart Sounds Pulmonary Exam: Clear Bilateral Breath Sounds Cardiac and Pulmonary Comment:: Hx of CVA in 2009 Implantable Cardiac Device Does patient have a Pacemaker or an ICD?: No Airway Exam Known Difficult Airway: No Mallampati Class: 2 Mouth Opening: Normal (> 3cm) Thyromental Distance: Greater than 3 cm Neck Range of Motion: Full ROM Neck Circumference: Normal Teeth Condition: Normal Dentition ASA Classification ASA Score: ASA 2 Emergency Case?: No NPO Status NPO Status: NPO Clears >2 hours, Solids >8 hours Anesthesia Plan Resuscitation Status: Full Code Anesthesia Technique: General Anesthesia Airway Planned: Natural Airway Monitors Used: Standard Monitors Preoperative Comments:: Recurrent heartburn.
[2023-10-30 08:22] VITALS: BP 147/79; PULSE 69; RESP 18; TEMP 36.4; O2SAT 99
[2023-10-30] MEDS: Lactated Ringers 1,000 ML 75 ML IV (08:45)
--- NOTE | 2023-10-30 09:03 | STOM_PTH ---
PATIENT: Chiara Hooper LOC: [facility] U#:[id number] AGE/SX: 68/F ROOM: RE10/30/[address]: Tamanna Wagner : 1955 BED: DIS: 10/30/2023 SPEC #: [id number] RECD: 10/30/23 12:29 STATUS: FELIPE GUAMAN #: [id number] LINDA: 10/30/23 09:[address]: Tamanna Wagner DEPT: Surgical Specimen RECD BY: Alvina Horton ENTERED: 10/30/23 12:30 SP TYPE: STOMACH OTHR DR: Sharonda Vila, RUNNER ON Tissues: 1 - BIOPSY BOWEL 2 - STOMACH BIOPSY 3 - ESOPHAGUS BIOPSY 4 - ESOPHAGUS BIOPSY 5 - ESOPHAGUS BIOPSY Procedures: GROSS AND MICRO LEVEL 4 IMMUNOPEROXIDASE STAIN Comments: [id number]
[2023-10-30 09:15] VITALS: BP 111/68; PULSE 67; RESP 16; TEMP 36.5; O2SAT 98
--- NOTE | 2023-10-30 09:38 | W.ANESPOSTOP ---
Postoperative Evaluation Date, Time and Location Date Performed: 10/30/23 Time Performed: 09:38 Patient Location: Day Surgery Unit Vital Signs Most Recent Imported Vital Signs: Most Recent Vital Signs Temp Pulse Resp BP Pulse Ox 36.5 C 67 16 111/68 98 10/30/23 09:15 10/30/23 09:15 10/30/23 09:15 10/30/23 09:15 10/30/23 09:15 Pain Score Most Recent Pain Score: Most Recent Pain Score Pain Level 0 10/30/23 09:15 Assessment Mental Status: Awake (Alert & Oriented to Patient Baseline) Airway and Respiratory Function: Patent airway with normal (patient baseline) respiratory exam Cardiovascular Function: Hemodynamically Stable Hydration Status: Adequately Hydrated Nausea & Vomiting: No Nausea or Vomiting Pain: Pt. Denies Any Pain Peripheral Nerve Block: Patient did not receive a nerve block
[2023-10-30 09:45] VITALS: BP 121/82; PULSE 67; RESP 16; TEMP 36.5; O2SAT 98
== END 2023-10-30 10:30 | disposition home or self-care (01) ==
LOC: SUR 08:07
PROVIDERS: PCP Nurse Practitioner Family; Visit Provider Surgery
PROC: 0DJ68ZZ Inspection of Stomach, Via Natural or Artificial Opening Endoscopic (ICD-10-PCS; CPT 43235; principal; 2023-10-30 09:00)
DX: K21.9 Gastro-esophageal reflux disease without esophagitis (principal); K29.70 Gastritis, unspecified, without bleeding; K22.89 Other specified disease of esophagus
CPT/HCPCS: 43239; 88305; 88361; J2001; J2405; J2704

== ENCOUNTER 2023-11-10 02:31 | Outpatient (CLI) | payer MEDICARE, SELFPAY ==
[2023-11-10 12:45] LABS: Anion Gap 9.2 mmol/L (3-11); BUN 14 mg/dL (7-18); CO2 27.8 mmol/L (21.0-32.0); Calcium 9.6 mg/dL (8.5-10.1); Calculated LDL 158 mg/dL (<100); Chloride 103 mmol/L (98-107); Cholesterol 250 mg/dL (<200); Estimated GFR 60.98 (mL/min/1.73m2); Glucose 100 mg/dL (74-106); HDL Cholesterol 79 mg/dL (40-60); Potassium 3.8 mmol/L (3.5-5.1); Sodium 140 mmol/L (136-145); Triglyceride 69 mg/dL (<150)
== END 2023-11-10 02:32 | disposition home or self-care (01) ==
LOC: LBO 02:32
PROVIDERS: PCP Nurse Practitioner Family; Visit Provider Nurse Practitioner Family
DX: Z00.00 Encounter for general adult medical examination without abnormal findings (principal); F32.9 Major depressive disorder, single episode, unspecified; M81.0 Age-related osteoporosis without current pathological fracture; H91.90 Unspecified hearing loss, unspecified ear; E78.5 Hyperlipidemia, unspecified
CPT/HCPCS: 36415; 80048; 80061

== ENCOUNTER 2024-11-02 12:16 | Outpatient (REF) | payer MEDICARE, SELFPAY ==
[2024-11-02 20:03] LABS: Glucose Negative (Negative)
[2024-11-02 20:13] LABS: C & S Indicated? Yes; RBC 20-50 HPF (0-2); WBC >50 HPF (0-5)
[2024-11-02 20:18] LABS: HCT 33.8 % (36.0-46.0); HGB 11.2 g/dL (11.2-15.7); MCH 29.8 pg (27.0-33.0); MCHC 33.1 % (32.0-36.0); MCV 90 fL (80-95); MPV 9.7 fL (8.0-11.0); Platelet Count 210 10^3/uL (130-400); RBC 3.76 10^6/uL (3.93-5.22); RDW 13.0 % (11.7-14.6); RDW-SD 42.6 fL; WBC 5.97 10^3/uL (4.4-10.8)
[2024-11-02 20:27] LABS: ALT 26 U/L (14-59); AST 21 U/L (15-37); Albumin 3.1 g/dL (3.4-5.0); Alkaline Phosphatase 85 U/L (46-116); Anion Gap 9.2 mmol/L (3-11); BUN 13 mg/dL (7-18); Bilirubin, Total 0.6 mg/dL (0.2-1.0); CO2 27.8 mmol/L (21.0-32.0); Calcium 9.4 mg/dL (8.5-10.1); Chloride 101 mmol/L (98-107); Estimated GFR 79.22 (mL/min/1.73m2); Glucose 96 mg/dL (74-106); Potassium 3.7 mmol/L (3.5-5.1); Sodium 138 mmol/L (136-145); Total Protein 7.2 g/dL (6.4-8.2)
[2024-11-02 20:39] LABS: Abs Immature Grans 0.00 10^3/uL (0.0-0.06); Immature Grans % 0.0 %; RBC Morphology Normal
== END 2024-11-02 12:17 | disposition home or self-care (01) ==
LOC: LBN 12:16
PROVIDERS: PCP Nurse Practitioner Family; Visit Provider Family Medicine
DX: R50.9 Fever, unspecified (principal); R39.9 Unspecified symptoms and signs involving the genitourinary system
CPT/HCPCS: 80053; 87077; 81003; 81015; 85025; 87086; 87186

== ENCOUNTER 2024-11-14 12:14 | Outpatient (CLI) | payer MEDICARE, SELFPAY ==
[2024-11-14 15:01] LABS: Abs Immature Grans 0.01 10^3/uL (0.0-0.06); HCT 33.5 % (36.0-46.0); HGB 11.3 g/dL (11.2-15.7); Immature Grans % 0.3 %; MCH 30.7 pg (27.0-33.0); MCHC 33.7 % (32.0-36.0); MCV 91 fL (80-95); MPV 9.1 fL (8.0-11.0); Platelet Count 259 10^3/uL (130-400); RBC 3.68 10^6/uL (3.93-5.22); RDW 13.2 % (11.7-14.6); RDW-SD 43.5 fL; WBC 3.46 10^3/uL (4.4-10.8)
[2024-11-14 18:54] LABS: Iron 125 ug/dL (50-170); Total Iron Binding Capacity 276 ug/dL (250-450); Transferrin Sat 45 % (15-50)
[2024-11-14 19:21] LABS: TSH (W/Ref FT4) 1.95 uIU/mL (0.36-3.74); Vitamin B12 428 pg/mL (193-986)
[2024-11-14 19:22] LABS: Folate > 20.0 ng/mL (8.6-20.0)
== END 2024-11-14 12:15 | disposition home or self-care (01) ==
LOC: LBO 12:15
PROVIDERS: PCP Nurse Practitioner Family; Visit Provider Nurse Practitioner Family
DX: D64.9 Anemia, unspecified (principal); D50.9 Iron deficiency anemia, unspecified; R23.1 Pallor; R23.2 Flushing
CPT/HCPCS: 36415; 82607; 82746; 83540; 83550; 84443; 85025

== ENCOUNTER 2024-11-16 14:50 | Outpatient (REF) | payer MEDICARE, SELFPAY ==
[2024-11-16 20:35] LABS: Glucose Negative (Negative)
[2024-11-16 20:47] LABS: C & S Indicated? No; RBC Negative HPF (0-2)
== END 2024-11-16 14:51 | disposition home or self-care (01) ==
LOC: NCHCN 14:50
PROVIDERS: PCP Nurse Practitioner Family; Visit Provider Nurse Practitioner Family
DX: N39.0 Urinary tract infection, site not specified (principal); R63.0 Anorexia; R50.9 Fever, unspecified; M79.18 Myalgia, other site; B96.29 Other Escherichia coli [E. coli] as the cause of diseases classified elsewhere
CPT/HCPCS: 81003; 81015

== ENCOUNTER 2024-11-29 03:39 | Outpatient (CLI) | payer MEDICARE, SELFPAY | END 2024-11-29 03:40 | disposition home or self-care (01) | LOC: LBO 03:39 | PROVIDERS: PCP Nurse Practitioner Family; Visit Provider Nurse Practitioner Family | DX: D64.9 Anemia, unspecified (principal) | CPT/HCPCS: 36415; 83020; 85045; 85660 ==